=== PATIENT | male | born 1985 | race Caucasian/White ===

== ENCOUNTER 2016-08-11 23:44 | Inpatient (IN) | payer OTHER ==
[~2016-08-11] VITALS: Ht 182.9 cm; Wt 89.2 kg
[~2016-08-11 23:44] MED LIST: LO-DOSE ASPIRIN81 M1 PO; XARELTO15 MG PO; XARELTO20 MG PO
[2016-08-12 00:20] LABS: HEMATOCRIT 38.8 % (38.0-50.0); MCH 29.2 PG (29.0-34.0); MCHC 34.3 G/DL (30.0-36.0); MCV 85.3 FL (86-99); MEAN PLAT.VOLUME 9.8 uM^3 (9.0-12.4); PLATELET COUNT 185 K/uL (156-360); RBC DIS.WIDTH-CV 12.6 % (11.8-14.6); RBC DIS.WIDTH-SD 39.1 % (39-53); RED BLOOD COUNT 4.55 M/uL (4.00-5.50); WHITE BLOOD COUNT 11.2 K/uL (4.1-10.2)
[2016-08-12 00:32] LABS: CHLORIDE 101 mEq/L (99-109); SODIUM 135 mEq/L (136-147)
[2016-08-12 00:34] LABS: GLUCOSE 101 mg/dL (70-99)
[2016-08-12 00:36] LABS: ANION GAP 11 MEQ/L (2-14)
[2016-08-12 00:38] LABS: GFR ESTIMATE (CALCULATED) > 59 mL/min/
[2016-08-12 00:39] LABS: UREA NITROGEN (BUN) 12 mg/dL (9-23)
[2016-08-12 00:42] LABS: TROP-I INTERPRETATION NEGATIVE; TROPONIN-I < 0.01 ng/mL (0.0-0.30)
[2016-08-12 03:04] LABS: PROTHROMBIN TIME 10.5 (9.2-11.2); PTT 32.4 (25-32)
[2016-08-12 05:41] VITALS: BP 132/78
[2016-08-12 08:03] VITALS: BP 124/68
[2016-08-12 12:03] VITALS: BP 127/73
[2016-08-12 15:27] VITALS: BP 137/83
[2016-08-12 20:01] VITALS: BP 129/84
[2016-08-12 23:19] VITALS: BP 133/85
[2016-08-13 04:40] VITALS: BP 135/84
[2016-08-13 05:48] LABS: HEMATOCRIT 35.1 % (38.0-50.0); MCH 29.3 PG (29.0-34.0); MCHC 33.6 G/DL (30.0-36.0); MCV 87.1 FL (86-99); MEAN PLAT.VOLUME 10.3 uM^3 (9.0-12.4); PLATELET COUNT 171 K/uL (156-360); RBC DIS.WIDTH-CV 12.7 % (11.8-14.6); RBC DIS.WIDTH-SD 40.8 % (39-53); RED BLOOD COUNT 4.03 M/uL (4.00-5.50); WHITE BLOOD COUNT 10.9 K/uL (4.1-10.2)
[2016-08-13 05:53] LABS: ANION GAP 7 MEQ/L (2-14); CHLORIDE 99 MEQ/L (99-109); GFR ESTIMATE (CALCULATED) > 59 mL/min/; GLUCOSE 106 mg/dL (70-99); SAMPLE HEMOLYSIS CHECK 0; SAMPLE ICTERIC CHECK 0; SAMPLE LIPEMIA CHECK 0; SODIUM 133 MEQ/L (136-147); UREA NITROGEN (BUN) 10 mg/dL (9-23)
[2016-08-13 07:33] VITALS: BP 146/85
[2016-08-13 11:43] VITALS: BP 130/75
[2016-08-13 11:46] LABS: INTER. NORMALIZED RATIO 1.2; PROTHROMBIN TIME 11.8 (9.2-11.2)
[2016-08-13 15:26] VITALS: BP 116/68
[2016-08-13 20:17] VITALS: BP 151/83
[2016-08-14 05:07] LABS: INTER. NORMALIZED RATIO 1.3; PROTHROMBIN TIME 13.6 (9.2-11.2)
[2016-08-14 06:41] LABS: INFLUENZA A VIRAL ANTIGEN NEGATIVE; INFLUENZA B VIRAL ANTIGEN NEGATIVE
[2016-08-14 08:24] VITALS: BP 118/74
[2016-08-14 15:28] VITALS: BP 148/82
[2016-08-14 19:54] VITALS: BP 125/79
[2016-08-15] VITALS (7 sets, daily range): BP systolic 117–144; BP diastolic 65–94
[2016-08-15 05:43] LABS: PROTHROMBIN TIME 21.3 (9.2-11.2)
[2016-08-16 04:55] VITALS: BP 106/56
[2016-08-16 05:40] LABS: INTER. NORMALIZED RATIO 2.8; PROTHROMBIN TIME 29.8 (9.2-11.2)
[2016-08-16 08:30] VITALS: BP 124/83
[2016-08-16 12:37] VITALS: BP 124/74
[2016-08-16 16:48] VITALS: BP 123/78
[2016-08-16 20:11] VITALS: BP 133/64
[2016-08-16 23:52] VITALS: BP 130/74
[2016-08-17 03:57] VITALS: BP 113/53
[2016-08-17 05:16] LABS: INTER. NORMALIZED RATIO 2.5; PROTHROMBIN TIME 26.1 (9.2-11.2)
[2016-08-17] MEDS ORDERED: COUMADIN1 MG PO (07:50)
[2016-08-17] MEDS ORDERED: TRAMADOL HCL50 MG PO (07:50)
[2016-08-17] MEDS ORDERED: NICOTINE PATCH1 EAC1 TD (07:50)
[2016-08-17 08:16] VITALS: BP 122/87
== END 2016-08-17 09:11 | disposition home or self-care (01) | DRG 176 ==
LOC: EME 23:44 → EDOF 08-12 04:11 → 3EAST 08-12 04:11
PROVIDERS: Emergency Medicine; Pediatrics; Physician Assistant
DX: I26.99 Other pulmonary embolism without acute cor pulmonale (principal); I82.431 Acute embolism and thrombosis of right popliteal vein; I82.441 Acute embolism and thrombosis of right tibial vein; R09.02 Hypoxemia; F17.210 Nicotine dependence, cigarettes, uncomplicated; F17.200 Nicotine dependence, unspecified, uncomplicated; D68.59 Other primary thrombophilia; Z86.718 Personal history of other venous thrombosis and embolism
CPT/HCPCS: 71020; 71275; 80048; 84484; 85027; 85610; 85730; 87502; 93005; 93970; 94640; 99281; 99285; J1650; J1885; J2270; J2405; J7030